=== PATIENT | male | born 1985 | race Caucasian/White ===

== ENCOUNTER 2020-11-18 17:17 | Emergency (ER) | payer SELFPAY ==
[~2020-11-18] VITALS: Ht 177.8 cm; Wt 68.0 kg
[~2020-11-18 17:17] MED LIST: NKHM; VICODIN 5/500 505 MG PO
[2020-11-18 17:55] LABS: BILIRUBIN 1+ (Negative); BLOOD 2+ (Negative); CLARITY Turbid (Clear); COLOR Orange (Yellow); GLUCOSE Negative (Negative); KETONE Negative (Negative); LEUKO ESTERASE 1+ (Negative); NITRITE Negative (Negative); PH 5.5 (4.5-8.0); SPECIFIC GRAVITY 1.025 (1.001-1.030)
[2020-11-18 17:57] LABS: BASO # 0.1 10*3/uL (0.0-0.1); BASO % 0.4 % (0.0-1.0); EOS # 0.3 10*3/uL (0.0-0.4); EOS % 1.9 % (1.0-4.0); HEMATOCRIT 51.5 % (42.0-52.0); LYMPH # 3.4 10*3/uL (1.3-4.4); MEAN CELL VOLUME 101.6 fl (80.0-94.0); MEAN CORPUSCULAR HGB 34.1 pg (27.0-31.0); MEAN CORPUSCULAR HGB CONC 33.6 g/dl (33.0-37.0); MEAN PLATELET VOLUME 10.6 fl (9.6-12.3); MONO # 1.1 10*3/uL (0.1-1.0); MONO % 7.6 % (3.0-9.0); NEUT # 9.2 10*3/uL (2.3-7.9); NEUT % 65.7 % (47.0-73.0); PLATELET COUNT AUTOMATED 233 10*3/uL (130-400); RED BLOOD COUNT 5.07 10*6/uL (4.50-5.90); RED CELL DISTRI WIDTH 12.4 % (0-14.5)
[2020-11-18 18:10] LABS: BACTERIA 2+; CALCIUM OXALATE CRYSTALS Trace; RBC TNTC rbc/hpf (0-2)
[2020-11-18 18:18] LABS: ALBUMIN 4.2 gm/dl (3.1-4.5); ALKALINE PHOSPHATASE 108 U/L (45-117); BUN 11 mg/dl (7-24); CHLORIDE 110 mmol/L (98-107); CREATININE 1.21 mg/dL (0.70-1.30); LIPASE 90 U/L (73-393); POTASSIUM 3.8 mmol/L (3.5-5.1); SGOT/AST 21 IU/L (3-35); SGPT/ALT 36 U/L (12-78); SODIUM 141 mmol/L (136-145)
[2020-11-18] MEDS ORDERED: ZOFRAN4 MG PO (20:45)
[2020-11-18] MEDS ORDERED: Motrin,Rufen800 MG PO (20:45)
[2020-11-18] MEDS ORDERED: HYDROCODONE-AC1 EAC1 PO (20:45)
[2020-11-18] MEDS ORDERED: FLOMAX0.4 MG PO (20:45)
== END 2020-11-18 20:58 | disposition home or self-care (01) ==
LOC: ED 17:17
PROVIDERS: Internal Medicine; Physician Assistant
DX: N13.2 Hydronephrosis with renal and ureteral calculous obstruction (principal); F17.200 Nicotine dependence, unspecified, uncomplicated

== ENCOUNTER 2021-07-04 18:06 | Emergency (ER) | payer SELFPAY ==
[~2021-07-04] VITALS: Ht 177.8 cm; Wt 68.0 kg
[~2021-07-04 18:06] MED LIST changes: +FLOMAX0.4 MG PO; +HYDROCODONE-AC1 EAC1 PO; +Motrin,Rufen800 MG PO; +ZOFRAN4 MG PO
[2021-07-04 18:51] LABS: BASO # 0.1 10*3/uL (0.0-0.1); BASO % 0.4 % (0.0-1.0); EOS # 0.2 10*3/uL (0.0-0.4); EOS % 1.5 % (1.0-4.0); HEMATOCRIT 53.2 % (42.0-52.0); LYMPH # 2.3 10*3/uL (1.3-4.4); MEAN CORPUSCULAR HGB 34.3 pg (27.0-31.0); MEAN PLATELET VOLUME 10.4 fl (9.6-12.3); MONO % 6.2 % (3.0-9.0); NEUT # 11.9 10*3/uL (2.3-7.9); NEUT % 76.4 % (47.0-73.0); PLATELET COUNT AUTOMATED 227 10*3/uL (130-400); RED BLOOD COUNT 5.43 10*6/uL (4.50-5.90); RED CELL DISTRI WIDTH 12.2 % (0-14.5); WHITE BLOOD COUNT 15.6 10*3/uL (4.8-10.8)
[2021-07-04 19:05] LABS: ALKALINE PHOSPHATASE 101 U/L (45-117); BUN 13 mg/dl (7-24); CHLORIDE 107 mmol/L (98-107); CREATININE 1.27 mg/dL (0.70-1.30); LIPASE 53 U/L (73-393); POTASSIUM 4.1 mmol/L (3.5-5.1); SGOT/AST 27 IU/L (3-35); SGPT/ALT 28 U/L (12-78); SODIUM 136 mmol/L (136-145); TOTAL PROTEIN 7.3 gm/dL (6.4-8.2)
[2021-07-04 20:16] LABS: BILIRUBIN 1+ (Negative); BLOOD 3+ (Negative); CLARITY Turbid (Clear); COLOR Orange (Yellow); GLUCOSE Negative (Negative); KETONE Trace (Negative); LEUKO ESTERASE 1+ (Negative); NITRITE Negative (Negative); SPECIFIC GRAVITY 1.025 (1.001-1.030)
[2021-07-04 20:26] LABS: CALCIUM OXALATE CRYSTALS 2+; RBC TNTC rbc/hpf (0-2)
[2021-07-04 20:27] LABS: BACTERIA 4+
[2021-07-04] MEDS ORDERED: FLOMAX0.4 MG PO (22:42)
[2021-07-04] MEDS ORDERED: ZOFRAN4 MG PO (22:42)
[2021-07-04] MEDS ORDERED: PERCOCET 5-3251 EACH PO (22:42)
[2021-07-04] MEDS ORDERED: Motrin,Rufen800 MG PO (22:42)
== END 2021-07-04 23:36 | disposition home or self-care (01) ==
LOC: ED 18:06
PROVIDERS: Physician Assistant
DX: N13.2 Hydronephrosis with renal and ureteral calculous obstruction (principal); Z87.442 Personal history of urinary calculi